=== PATIENT | male | born 1970 | race Two or more races ===

== ENCOUNTER 2023-03-01 23:37 | Emergency (ER) | payer MEDICAID ==
[~2023-03-01] VITALS: Ht 182.9 cm; Wt 122.8 kg
[2023-03-01 23:50] VITALS: BP 104/50; PULSE 108; RESP 16; TEMP 99.1; O2SAT 97
[2023-03-02] MEDS ORDERED: HYDROcodone-ACET 5/325MG TAB PO ONE (01:45)
[2023-03-02] MEDS ORDERED: MUPI2OIN2 EX (01:52)
[2023-03-02] MEDS ORDERED: IBUP-1454 PO (01:52)
[2023-03-02] MEDS ORDERED: CEPH500C PO (01:52)
== END 2023-03-02 06:03 | disposition home or self-care (01) ==
LOC: ER 23:37
DX: S83.91XA Sprain of unspecified site of right knee, initial encounter (principal); I10 Essential (primary) hypertension; E11.9 Type 2 diabetes mellitus without complications; E78.5 Hyperlipidemia, unspecified; Z79.1 Long term (current) use of non-steroidal anti-inflammatories (NSAID); Z79.899 Other long term (current) drug therapy; X58.XXXA Exposure to other specified factors, initial encounter; Y93.89 Activity, other specified; Y92.89 Other specified places as the place of occurrence of the external cause; Y99.8 Other external cause status
CPT/HCPCS: 73562

== ENCOUNTER 2023-11-11 18:59 | Emergency (ER) | payer MEDICAID ==
[~2023-11-11] VITALS: Ht 183.5 cm; Wt 108.0 kg
[~2023-11-11 18:59] MED LIST: CEPH500C PO; IBUP-1454 PO; MUPI2OIN2 EX
[2023-11-11] MEDS: KETOROLAC TROMETH 60MG/2ML VIAL IM ONE (21:17)
[2023-11-11 21:20] VITALS: BP 107/77; PULSE 99; RESP 18; TEMP 98.9; O2SAT 97
[2023-11-11] MEDS ORDERED: ACET500T58 PO (21:46)
[2023-11-11] MEDS ORDERED: IBUP-1455 PO (21:46)
== END 2023-11-11 22:29 | disposition home or self-care (01) ==
LOC: ER 18:59
DX: S39.012A Strain of muscle, fascia and tendon of lower back, initial encounter (principal); S80.01XA Contusion of right knee, initial encounter; M47.812 Spondylosis without myelopathy or radiculopathy, cervical region; E11.9 Type 2 diabetes mellitus without complications; E78.5 Hyperlipidemia, unspecified; I10 Essential (primary) hypertension; W18.09XA Striking against other object with subsequent fall, initial encounter; Y93.89 Activity, other specified; Y92.89 Other specified places as the place of occurrence of the external cause; Y99.8 Other external cause status
CPT/HCPCS: 72040; 72100; 73120; 73562; 74018; 96372; 99284; J1885